=== PATIENT | female | born 1990 | race African-American/Black ===

== ENCOUNTER 2017-08-03 13:01 | Emergency (ER) | payer MEDICARE, MEDICAID ==
[~2017-08-03] VITALS: Ht 165.1 cm; Wt 108.9 kg
[2017-08-03 13:45] VITALS: BP 116/72
[2017-08-03] MEDS ORDERED: IBUPROFEN 800 MG TAB PO ONE (14:00)
[2017-08-03] MEDS ORDERED: KETOROLAC TROMETH 60MG/2ML VIAL IM ONE (14:15)
== END 2017-08-03 15:10 | disposition home or self-care (01) ==
LOC: EDBD 13:04 → ER 13:04
DX: S83.91XA Sprain of unspecified site of right knee, initial encounter (principal); W20.8XXA Other cause of strike by thrown, projected or falling object, initial encounter; Y93.89 Activity, other specified; Y92.89 Other specified places as the place of occurrence of the external cause; Y99.8 Other external cause status
CPT/HCPCS: 73562; 96372; 99284; J1885